=== PATIENT | female | born 1955 | race Caucasian/White ===

== ENCOUNTER 2025-02-09 11:15 | Outpatient (CLI) | payer MEDICARE ==
--- NOTE | 2025-02-09 12:56 | RADIOLOGY REPORT ---
INDICATION: MICROSCOPIC HEMATURIA TECHNIQUE: Multiple real-time sonographic images of the kidneys and bladder were obtained. COMPARISON: None FINDINGS: The right kidney measures 10 cm in length, which is normal in size. There is normal echogen icity of the right kidney. No hydronephrosis. The left kidney measures 10 cm in length, which is normal in size. There is normal echogenicity of th e left kidney. No hydronephrosis. No large intraluminal masses are seen in the bladder. Prior to voiding the bladder volume measures vo lume 626 cc. Following voiding, the bladder volume residual measures 128 cc. IMPRESSION: 1. Normal sonographic appearance of the kidneys. No hydronephrosis.
== END 2025-02-09 23:59 | disposition home or self-care (01) ==
LOC: RAD 11:15
PROVIDERS: ATTEND Nurse Practitioner Family
DX: R31.29 Other microscopic hematuria (principal)
CPT/HCPCS: 76770